=== PATIENT | female | born 1980 | race Two or more races ===

== ENCOUNTER 2017-06-22 14:52 | Emergency (ER) | payer MEDICAID ==
[2017-06-22] MEDS ORDERED: NS 1,000 ML IV ONE (15:21)
[2017-06-22] MEDS ORDERED: METOCLOPRAMIDE 10 MG/2 ML VIAL IVP ONE (15:21)
[2017-06-22] MEDS ORDERED: KETOROLAC 30 MG/1 ML SDV IVP ONE (15:21)
[2017-06-22] MEDS ORDERED: DEXAMETHASONE 10 MG/ML VIAL IVP ONE (15:21)
--- NOTE | 2017-06-22 15:24 | EDPHY ---
H & P Time Seen by Provider: 06/22/17 15:11 HPI/ROS: CHIEF COMPLAINT: Headache HISTORY OF PRESENT ILLNESS: Patient has a long history of migraines since 8 years old. As her typical migraine for the last 3 days not thunderclap in onset or worst of life. Left-sided with nausea and vomiting 3 days ago worse with light and does not radiate. Severity moderate not helped with Advil. Identical to previous migraines and thinks her trigger might have been eating eggs because she has a history of food triggers. REVIEW OF SYSTEMS: Eye: No aura or blurry vision ENT: no sore throat Cardiac: no chest pain or syncope Pulmonary: no cough or SOB Abdomen: No abdominal pain or diarrhea Musculoskeletal: No neck pain Skin: no rash Neuro: HPI Constitutional: no fever : no urinary symptoms A comprehensive 10 point review of systems is otherwise negative aside from elements mentioned in the history of present illness. PAST MEDICAL HISTORY: Gallstones and migraine headaches Social history: Nonsmoker, primary care at [facility] General Appearance: Alert and conversant, cooperative. Eyes: No scleral icterus. ENT, Mouth: Normal mucous membranes. Normal tympanic membranes, no facial swelling. Respiratory: Normal respiratory effort, breath sounds equal, lungs are clear to auscultation. Cardiovascular: Regular rate and rhythm. Gastrointestinal: Abdomen is soft and non tender. Neurological: Alert and oriented x3. Normally conversant. Face symmetric, normal movement and sensation in all extremities. Not ataxic, no pronator drift , normal [id number], fluent speech. Skin: Warm and dry, no rashes. Musculoskeletal: Neck supple, no meningeal signs. Psychiatric: Not agitated. Emergency Department course/MDM: Patient presents with clear history of typical migraine which just says lasted 3 days which is longer than usual for her. No red flags to suggest she is at high risk for intracranial bleed or [employer] infection or intracranial mass. Toradol 30 mg, dexamethasone 10 mg, Reglan 10 mg IV. 1626: Sleeping, easily awakened, feels better, stable for discharge. Smoking Status: Never smoked Constitutional: Initial Vital Signs Temperature (C) 36.5 C 06/22/17 14:54 Heart Rate 75 06/22/17 14:54 Respiratory Rate 18 06/22/17 14:54 Blood Pressure 102/58 L 06/22/17 14:54 O2 Sat (%) 98 06/22/17 14:54 O2 Delivery Mode Room Air Allergies/Adverse Reactions: No Known Allergies Allergy (Verified 06/22/17 14:56) Medical Decision Making Differential Diagnosis: Differential diagnosis considered for headache including but not limited to subarachnoid hemorrhage, migraine headache, tension headache and infectious causes such as meningitis, pharyngitis and sinusitis. - Data Points Medications Given: Discontinued Medications Dexamethasone (Decadron Injection) 10 mg IVP EDNOW ONE Stop: 06/22/17 15:22 Last Admin: 06/22/17 15:44 Dose: 10 mg Sodium Chloride (Ns) 1,000 mls @ 0 mls/hr IV ONCE ONE; Wide Open PRN Reason: Protocol Stop: 06/22/17 15:22 Last Admin: 06/22/17 15:43 Dose: 1,000 mls Ketorolac Tromethamine (Toradol) 30 mg IVP EDNOW ONE Stop: 06/22/17 15:22 Last Admin: 06/22/17 15:44 Dose: 30 mg Metoclopramide HCl (Reglan Injection) 10 mg IVP EDNOW ONE Stop: 06/22/17 15:22 Last Admin: 06/22/17 15:44 Dose: 10 mg Departure - Departure Disposition: Home, Routine, Self-Care Clinical Impression: Migraine headache without aura Qualifiers: Status migrainosus presence: without status migrainosus Intractability: not intractable Qualified Code(s): G43.009 - Migraine without aura, not intractable , without status migrainosus Condition: Good Instructions: Acute Headache (ED) Referrals: Minerva Ruvalcaba [Other] - As per Instructions (your provider at [facility] in [place])
[2017-06-22 16:49] VITALS: BP 128/75; PULSE 81; RESP 16; TEMP 98.6; O2SAT 95
== END 2017-06-22 16:49 | disposition home or self-care (01) ==
DX: G43.009 Migraine without aura, not intractable, without status migrainosus (principal); E86.9 Volume depletion, unspecified
CPT/HCPCS: 96374; J1100; J1885; J2765

== ENCOUNTER 2017-12-15 18:50 | Emergency (ER) | payer MEDICAID ==
--- NOTE | 2017-12-15 19:06 | EDPHY ---
General Time Seen by Provider: 12/15/17 18:59 Narrative: CHIEF COMPLAINT: Migraine HISTORY OF PRESENT ILLNESS: Patient presents with complaints of right-sided headache that she feels is a migraine. This started this morning when she woke around 7am. It has right hemiplegia. Radiates into the right neck. Associated with photophobia, phonophobia, "certain smells and just anything." Minimal improvement when she took Advil today. Typically does respond well to Advil. Some nausea but no vomiting at this time. She has vomited with these in the past. No neck stiffness. No trauma or injury. No history of subarachnoid hemorrhage, bleeding disorder or pseudotumor. No seizure-like activity, and no known seizure disorder. She does have formal diagnosis of migraines but does not take any specific medications. No other associated complaints or modifying factors. REVIEW OF SYSTEMS: Ten systems reviewed and are negative unless otherwise noted in the HPI PCP: Dr. Yan SPECIALISTS: None PAST MEDICAL HISTORY: Migraine headaches PAST SURGICAL HISTORY: No recent surgery SOCIAL HISTORY: Never smoker. No drug or alcohol use. Currently in school. Lives here independently with her spouse who is at bedside FAMILY HISTORY: Noncontributory EXAMINATION General Appearance: Alert, no distress. Sitting in the dark Head: normocephalic, atraumatic Eyes: Pupils equal and round, no conjunctival pallor or injection. EOMs are symmetric. No nystagmus. ENT, Mouth: Mucous membranes moist Neck: Normal inspection, supple, non-tender. No meningeal signs Respiratory: Lungs are clear to auscultation Cardiovascular: Regular rate and rhythm. No murmur Gastrointestinal: Abdomen is soft and nontender Back: non-tender, no bony abnormalities Neurological: GCS 15. Cranial nerves 2-12 grossly intact. No pronator drift. Normal finger to nose. A&O, nonfocal, normal gait. Strength is symmetric in the upper and lower extremities. Skin: Warm and dry, no rash Extremities: Nontender, no pedal edema Psychiatric: Mood and affect normal DIFFERENTIAL DIAGNOSES: Including but not limited to migraine headache, cluster headache, tension headache, muscular spasm, subarachnoid hemorrhage, meningitis, hypertensive headache MDM: 7:00 p.m. Migraine headache as stated by patient. This is consistent with previous migraines. It is right hemiplegic. She has no meningeal signs. She has normal neuro examination with no signs of illness otherwise. She says that she has responded well to our typical medications that we use for migraines. She is in no acute distress with vital signs within limits 8:15 p.m. Patient re-evaluated. She is feeling much better. Not completely resolved but much better. At this point she feels comfortable going home with her level of pain being very tolerable. She remains well-appearing. We discussed follow up with primary care physician, simran ferreira. We discussed ED precautions . She is comfortable this plan and discharged home stable condition. SUPERVISION: This patient was independently evaluated without direct involvement of or examination by the attending physician. - History Smoking Status: Never smoked - Objective Vital Signs: Initial Vital Signs Temperature (C) 97.7 F 12/15/17 18:54 Heart Rate 80 12/15/17 18:54 Respiratory Rate 17 12/15/17 18:54 Blood Pressure 98/77 L 12/15/17 18:54 O2 Sat (%) 97 12/15/17 18:54 O2 Delivery Mode Room Air O2 (L/minute) 2 Allergies/Adverse Reactions: No Known Allergies Allergy (Verified 12/15/17 18:52) Home Medications: Medication Instructions Recorded Advil 12/15/17 Codeine/Butalbital/ASA/Caffein 1 - 2 each PO Q4 PRN #12 capsule 12/15/17 [Fiorinal with Codeine #3 Cap] Laboratory Results: Laboratory Results 12/15/17 19:51 12/15/17 19:51 Sodium 140 mEq/L mEq/L (135-145) Potassium 3.8 mEq/L mEq/L (3.5-5.2) Chloride 104 mEq/L mEq/L (97-110) Carbon Dioxide 22 mEq/l mEq/l (22-31) Anion Gap 14 mEq/L mEq/L (8-16) BUN 9 mg/dL mg/dL (7-23) Creatinine 0.5 mg/dL L mg/dL (0.6-1.0) Estimated GFR > 60 Glucose 102 mg/dL H mg/dL (70-100) Calcium 9.7 mg/dL mg/dL (8.5-10.4) Beta HCG, Quant < 2.39 mIU/mL mIU/mL (0.00-4.83) Medications Given: Discontinued Medications Dexamethasone (Decadron Injection) 10 mg IVP EDNOW ONE Stop: 12/15/17 19:08 Last Admin: 12/15/17 19:27 Dose: 10 mg Diphenhydramine HCl (Benadryl Injection) 50 mg IVP EDNOW ONE Stop: 12/15/17 19:08 Last Admin: 12/15/17 19:27 Dose: 50 mg Sodium Chloride (Ns) 1,000 mls @ 0 mls/hr IV EDNOW ONE; Wide Open PRN Reason: Protocol Stop: 12/15/17 19:42 Last Admin: 12/15/17 19:44 Dose: 1,000 mls Metoclopramide HCl (Reglan Injection) 10 mg IVP EDNOW ONE Stop: 12/15/17 19:08 Last Admin: 12/15/17 19:27 Dose: 10 mg Ondansetron HCl (Zofran) 4 mg IVP EDNOW ONE Stop: 12/15/17 19:08 Last Admin: 12/15/17 19:27 Dose: 4 mg Departure - Departure Disposition: Home, Routine, Self-Care Clinical Impression: Migraine Qualifiers: Migraine type: unspecified Status migrainosus presence: without status migrainosus Intractability: not intractable Qualified Code(s): G43.909 - Migraine, unspecified, not intractable, without status migrainosus Condition: Good Instructions: Ibuprofen (By mouth), Migraine Headache (ED), Acute Headache (ED) Additional Instructions: 1. [id number] medications as discussed as needed 2. Fioricet as prescribed as needed 3. Contact primary care physician for outpatient follow-up Referrals: NONE *PRIMARY CARE P,. [Primary Care Provider] - As per Instructions Stand Alone Forms: School Excuse Prescriptions: Codeine/Butalbital/ASA/Caffein [Fiorinal with Codeine #3 Cap] 1 - 2 each PO Q4 PRN #12 capsule PRN Reason: Headache
[2017-12-15] MEDS ORDERED: DEXAMETHASONE 10 MG/ML VIAL IVP ONE (19:07)
[2017-12-15] MEDS ORDERED: ONDANSETRON 4 MG/2 ML VIAL IVP ONE (19:07)
[2017-12-15] MEDS ORDERED: METOCLOPRAMIDE 10 MG/2 ML VIAL IVP ONE (19:07)
[2017-12-15] MEDS ORDERED: NS 1,000 ML IV ONE (19:41)
[2017-12-15 20:39] VITALS: BP 105/64
== END 2017-12-15 20:39 | disposition home or self-care (01) ==
DX: G43.909 Migraine, unspecified, not intractable, without status migrainosus (principal); E86.9 Volume depletion, unspecified
CPT/HCPCS: 96374; J1100; J1200; J2405; J2765

== ENCOUNTER 2018-01-10 20:04 | Emergency (ER) | payer MEDICAID ==
--- NOTE | 2018-01-10 20:23 | EDPHY ---
H & P Stated Complaint: migraine x5 days, Time Seen by Provider: 01/10/18 20:18 HPI/ROS: CHIEF COMPLAINT: Headache x4 days HISTORY OF PRESENT ILLNESS: 37-year-old female history of migraine headache complaining of her usual migraine headache for the past 5 days unrelieved with ibuprofen. She has prior history of similar has been the ER previously for similar. Positive audio phobia and photophobia. Non thunderclap. Not worst headache life. No trauma history. No neck manipulation history. No fall. No gait instability. No slurred speech. PRIMARY CARE PROVIDER: REVIEW OF SYSTEMS: A ten point review of systems was performed and is negative with the exception of the items mentioned in the HPI PAST MEDICAL & SURGICAL HISTORY: Chronic migraine headache SOCIAL HISTORY: Nonsmoker PHYSICAL EXAM (Prior to examination, patient consented to physical exam, hands were washed and my usual and customary physical exam procedures followed) 1) GENERAL: Well-developed, well-nourished, alert and oriented. Appears uncomfortable, sitting in a darkened room.. 2) HEAD: Normocephalic, atraumatic 3) HEENT: Pupils equal, round, reactive to light bilaterally. Sclera anicteric. Positive photophobia Nasopharynx, oropharynx, clear, no lesions. Ears bilaterally with normal tympanic membranes. 4) NECK: Full range of motion, no meningeal signs. 5) LUNGS: Clear auscultation bilaterally, no wheezes, no rhonchi, no retractions. 6) HEART: Regular rate and rhythm, no murmur, no heave, no gallop. 7) ABDOMEN: No guarding, no rebound, no focal tenderness, negative McBurney's, negative Bridges's, negative Rovsing's, negative peritoneal sign, 8) MUSCULOSKELETAL: Moving all extremities, no focal areas of tenderness, no obvious trauma. No peripheral edema or discoloration. 9) BACK: No CVA tenderness, no midline vertebral tenderness, no fluctuance, no step-off, no obvious trauma, no visual or palpable abnormality. 10) SKIN: No rash, no petechiae. 11) Psychiatric: Patient is oriented X 3, there is no agitation. 12) NEURO: Awake, alert, and oriented to person, place and time. Answers questions appropriately. There were no obvious focal neurologic abnormalities. No cerebellar dysfunction. Cranial nerves 2 through to 12 intact. Normal steady gait. Upper and lower extremities bilaterally with strength 5 / 5, reflexes 2+. DIFFERENTIAL DIAGNOSIS: In no particular order, including but not limited to subarachnoid hemorrhage, migraine headache, tension headache and infectious causes such as meningitis, pharyngitis and sinusitis. - Personal History LMP (Females 10-55): Over 28 Days Ago Current Tetanus/Diphtheria Vaccine: Yes - Medical/Surgical History Hx Asthma: No Hx Chronic Respiratory Disease: No Hx Diabetes: No Hx Cardiac Disease: No Hx Renal Disease: No Hx Cirrhosis: No Hx Alcoholism: No Hx HIV/AIDS: No Hx Splenectomy or Spleen Trauma: No Other PMH: Hernia. GB issues. MIGRAINES - Social History Smoking Status: Never smoked Constitutional: Initial Vital Signs Temperature (C) 36.5 C 01/10/18 20:05 Heart Rate 93 01/10/18 20:05 Respiratory Rate 18 01/10/18 20:05 Blood Pressure 99/60 L 01/10/18 20:05 O2 Sat (%) 95 01/10/18 20:05 O2 Delivery Mode Room Air Allergies/Adverse Reactions: No Known Allergies Allergy (Verified 12/15/17 18:52) Home Medications: Medication Instructions Recorded NK [No Known Home Meds] 01/10/18 Medical Decision Making ED Course/Re-evaluation: 8:30 p.m. Old medical records reviewed by myself. She has history of chronic migraine. She has a nonfocal exam. Will plan on analgesia. Will hold on imaging at this time. . 9:48 p.m.: Re-evaluation after medications for migraine. She is feeling relief. She would like to be discharged home. I think that subarachnoid hemorrhage, intracranial mass, malignancy, less than likely in this patient at this time. I do not think that the benefits of CT imaging, lumbar puncture, outweigh the risks in this patient. Care of patient under supervision of secondary supervising physician Dr Bacon . - Data Points Medications Given: Discontinued Medications Dexamethasone (Decadron Injection) 10 mg IVP EDNOW ONE Stop: 01/10/18 20:26 Last Admin: 01/10/18 20:39 Dose: 10 mg Diphenhydramine HCl (Benadryl Injection) 25 mg IVP EDNOW ONE Stop: 01/10/18 20:26 Last Admin: 01/10/18 20:42 Dose: 25 mg Sodium Chloride (Ns) 1,000 mls @ 0 mls/hr IV ONCE ONE PRN Reason: Wide Open Stop: 01/10/18 20:26 Last Admin: 01/10/18 20:34 Dose: 1,000 mls Ketorolac Tromethamine (Toradol) 15 mg IVP EDNOW ONE Stop: 01/10/18 20:26 Last Admin: 01/10/18 20:42 Dose: 15 mg Metoclopramide HCl (Reglan Injection) 10 mg IVP EDNOW ONE Stop: 01/10/18 20:26 Last Admin: 01/10/18 20:35 Dose: 10 mg Departure - Departure Disposition: Home, Routine, Self-Care Clinical Impression: Migraine Qualifiers: Migraine type: unspecified Status migrainosus presence: without status migrainosus Intractability: not intractable Qualified Code(s): G43.909 - Migraine, unspecified, not intractable, without status migrainosus Condition: Good Instructions: Migraine Headache (ED) Additional Instructions: THANK YOU FOR YOUR VISIT TO OUR EMERGENCY DEPARTMENT (ED). YOU WERE SEEN TODAY BECAUSE OF A HEADACHE. YOU MAY HAVE HAD LAB TESTS, A CT SCAN, MRI OR EVEN A LUMBAR PUNCTURE (COMMONLY REFERRED TO A SPINAL TAP). WE CANNOT ALWAYS FIND THE EXACT CAUSE OF YOUR SYMPTOMS DURING YOUR VISIT TO THE ED. PLEASE FOLLOW UP WITH YOUR DOCTOR WITHIN 24 HOURS TO BE RECHECKED. RETURN TO THE ED IMMEDIATELY IF YOUR HEADACHE WORSENS, IF YOU DEVELOP A FEVER, NECK PAIN OR NECK STIFFNESS, OR IF YOU BECOME CONFUSED OR ABNORMALLY DROWSY. Referrals: Josue Momin DO [Medical Doctor] - 2-3 days, call for appt.
[2018-01-10] MEDS ORDERED: DEXAMETHASONE 10 MG/ML VIAL IVP ONE (20:25)
[2018-01-10] MEDS ORDERED: METOCLOPRAMIDE 10 MG/2 ML VIAL IVP ONE (20:25)
[2018-01-10] MEDS ORDERED: NS 1,000 ML IV ONE (20:25)
[2018-01-10] MEDS ORDERED: KETOROLAC 15 MG/1 ML SDV IVP ONE (20:25)
[2018-01-10 21:42] VITALS: BP 109/63
== END 2018-01-10 21:57 | disposition home or self-care (01) ==
DX: G43.909 Migraine, unspecified, not intractable, without status migrainosus (principal)
CPT/HCPCS: 96374; J1100; J1200; J1885; J2765

== ENCOUNTER 2018-07-18 16:28 | Emergency (ER) | payer OTHER, MEDICAID ==
[2018-07-18 16:39] VITALS: BP 114/76
--- NOTE | 2018-07-18 17:03 | EDPHY ---
H & P Time Seen by Provider: 07/18/18 17:01 HPI/ROS: CHIEF COMPLAINT: ankle pain HISTORY OF PRESENT ILLNESS: The patient has had ongoing left ankle pain for about the last 3 years. Tells me she saw her primary care physician at [facility] who did not give her specific diagnosis. Over the last 2-3 days the pain has gotten worse. She says it is intermittent and sharp and worse when she stands on it. No fever, no injury or trauma, no skin changes. No leg or knee, or foot pain. REVIEW OF SYSTEMS: HPI PAST MEDICAL HISTORY: Cholecystectomy, hernia, migraine headache Social history: Patient of [facility] General Appearance: Alert and conversant, cooperative. Calf nontender. Achilles nontender. Ly test negative. Normal range of motion of the ankle, no pain on varus or valgus stress, ankle joint is stable. No tenderness in the malleoli. Foot nontender. Normal dorsalis pedis pulse. Normal motor and sensory distally. Skin normal without rash or lesions or warmth or tenderness. No blisters or eschar. Emergency Department course/MDM: Ankle x-ray negative. Doubt DVT or septic joint or fracture or ankle sprain or gout or pseudogout. Air cast, [id number] medication, specialist referral. Smoking Status: Never smoked Constitutional: Initial Vital Signs Temperature (C) 36.7 C 07/18/18 16:36 Heart Rate 76 07/18/18 16:36 Respiratory Rate 16 07/18/18 16:36 Blood Pressure 114/76 07/18/18 16:36 O2 Sat (%) 97 07/18/18 16:36 O2 Delivery Mode Room Air Allergies/Adverse Reactions: No Known Allergies Allergy (Verified 07/18/18 13:15) Home Medications: Medication Instructions Recorded NK [No Known Home Meds] 01/10/18 MDM/Departure - MDM Imaging Results: Imaging Impressions Ankle X-Ray 07/18/18 16:40 Impression: No acute osseous findings. Imaging: I viewed and interpreted images myself - Depart Disposition: Home, Routine, Self-Care Clinical Impression: Ankle pain, left Qualifiers: Chronicity: acute Qualified Code(s): M25.572 - Pain in left ankle and joints of left foot Condition: Good Instructions: Ankle Stirrup Splint (ED) Additional Instructions: Ibuprofen 600 mg orally every 8 hr as needed for pain. Orthopedic follow-up next week. Air cast as needed if it does help your pain. Referrals: Jerry Gaona MD [Medical Doctor] - As per Instructions (please followup with this orthopedist in the office next week)
== END 2018-07-18 17:28 | disposition home or self-care (01) ==
DX: M25.572 Pain in left ankle and joints of left foot (principal)
CPT/HCPCS: L4350

== ENCOUNTER → 2018-07-18 | Emergency (ER) | payer OTHER, MEDICAID ==
[2018-07-18 13:18] VITALS: BP 122/66
== END | disposition left against medical advice (07) ==
DX: Z53.21 Procedure and treatment not carried out due to patient leaving prior to being seen by health care provider (principal)